=== PATIENT | male | born 1950 | race Caucasian/White ===

== ENCOUNTER 2017-05-19 09:52 | Day surgery (SDC) | payer MEDICARE ==
[2017-05-13 10:14] VITALS: BMI 31.6
--- NOTE | 2017-05-18 14:19 | HP ---
HISTORY AND PHYSICAL DATE OF SERVICE: 05/19/2017 Catracho Buchanan is a 66-year-old patient seen with progressive left knee pain. We discussed treatment options. He elected to proceed with arthroscopy. Consent was obtained. PAST MEDICAL HISTORY: Hypertension, hyperlipidemia, migraine headaches. PAST SURGICAL HISTORY: Foot surgery. DAILY MEDICATIONS: 1. Allopurinol. 2. Amlodipine. 3. Atorvastatin. 4. Furosemide. ALLERGIES: None reported. SOCIAL HISTORY: Patient denies current tobacco use. PHYSICAL EVALUATION OF THE LEFT KNEE: His range of motion 0 to 130 degrees. There is a mild effusion. Tenderness medial joint line, tenderness lateral joint line. Positive medial Joyce's. Positive lateral Joyce's. Ligaments are stable. Hip rotation without pain. Distal neurovascular exam is intact Left knee radiographs revealed mild medial, mild lateral and moderate patellofemoral compartment osteoarthritis of the left knee. MRI revealed medial meniscal tear. IMPRESSION: 1. Internal derangement, left knee with meniscal tear. 2. Left knee osteoarthritis. 3. Hypertension. 4. Hyperlipidemia. PLAN: Left knee arthroscopy with partial meniscectomy and debridement. MMODL / IJN: [id number] /
[~2017-05-19 09:52] MED LIST: DEXAMETHASONE SOD PHOSPHATE 10 MG/ML 1 ML VIAL IV ONE; LACTATED RINGERS 1,000 ML IV SCH; LIDOCAINE 1% 20 ML VIAL (10MG/ML) FOR IV START INTRADERMA PRN; MIDAZOLAM 2 MG/2 ML VIAL IV PRN; ONDANSETRON 4 MG/2 ML VIAL IVP ONE; SCOPOLAMINE 1.5MG/72HR PATCH TRANSDERM ONE; ceFAZolin IN SWFI 2 GM/20 ML SYRINGE IVP ONE
[2017-05-19] MEDS ORDERED: LIDOCAINE 1% 20 ML VIAL (10MG/ML) FOR IV START INTRADERMA ONE (10:28)
[2017-05-19] MEDS ORDERED: fentaNYL (PF) 50 MCG/ML 2 ML AMP ONE (12:24)
[2017-05-19] MEDS ORDERED: BUPIVACAINE (PF) 0.25% 30 ML VIAL INTRAARTIC ONE (12:24)
[2017-05-19] MEDS ORDERED: MIDAZOLAM 2 MG/2 ML VIAL ONE (12:24)
[2017-05-19] MEDS ORDERED: LIDOCAINE 1% INJ 10MG/ML (20 ML MDV) ONE (12:24)
[2017-05-19] MEDS ORDERED: PROPOFOL 10 MG/ML 20 ML VIAL IV ONE (12:24)
[2017-05-19] MEDS ORDERED: SUCCINYLCHOLINE CHLORIDE 100 MG/5 ML SYR IV ONE (12:24)
[2017-05-19] MEDS ORDERED: LACTATED RINGERS 1,000 ML IV ONE ×2 (13:14→17:00)
[2017-05-19 13:36] VITALS: TEMP 98
--- NOTE | 2017-05-19 13:46 | P.OP ---
Date of Procedure: 05/19/17 Preoperative Diagnosis: Internal derangement left knee Postoperative Diagnosis: 1. Tear medial and lateral meniscus left knee 2. Grade 3 chondromalacia medial femoral condyle 3. Grade 3 chondromalacia lateral tibial plateau left knee 4. Grade 2 chondromalacia patella left knee 5. Reactive synovitis medial and suprapatellar compartments left knee 6. Large osteophyte medial patella left knee Procedure(s) Performed: 1. Arthroscopic partial medial and lateral meniscectomy left knee 2. Arthroscopic chondroplasty medial femoral condyle left knee 3. Arthroscopic chondroplasty lateral tibial plateau left knee 4. Arthroscopic chondroplasty patella left knee 5. Arthroscopic partial synovectomy medial and suprapatellar compartments left knee 6. Arthroscopic excision osteophyte medial patella left knee Implants: None Anesthesia: TIARRA, local Surgeon: Lawrence Rahman Estimated Blood Loss (ml): 10 Pathology: none sent Condition: stable Disposition: PACU Indications for Procedure: 66-year-old patient seen with progressive left knee pain. After treatment options were discussed, he elected to proceed with arthroscopy. Operative Findings: see description of procedure Description of Procedure: Patient was taken to the operative suite. Patient underwent a general anesthetic by the department of anesthesia. Patient was given preoperative antibiotics. The left lower extremity was placed in a well-padded arthroscopic leg thakur. The left leg was prepped and draped in the normal sterile orthopedic fashion. A lateral parapatellar and suprapatellar incision was made. Trochars were inserted. Arthroscopy was initiated. Suprapatellar pouch revealed diffuse thick reactive synovitis. The patellofemoral joint appeared to articulate congruently. There was grade 2 chondromalacia of the patella with some osteochondral tears present. The scope was guided into the medial gutter. There was a large osteophyte emanating off the medial patella which articulated with the medialmost femoral condyle causing grade 4 chondromalacia in that area. With range of motion and it was contact between the osteophyte and that condyle. No loose bodies or plica were identified. The scope was then guided into the medial compartment. A medial parapatellar incision was made. Trocar inserted followed by probe. There was a complex tear posterior horn medial meniscus which extended into the midbody. There were grade 3 chondromalacia changes of the medial femoral condyle with some osteochondral tears present. There was reactive synovitis anteriorly. I performed a partial medial meniscectomy down to stable tissue. I performed a chondroplasty of the medial femoral condyle down to stable tissue and partial synovectomy. The residual meniscus was stable. The residual osteochondral surface of the medial femoral condyle was stable. There was good decompression of the reactive synovitis. Scope and probe were then guided into the intercondylar notch. Cruciates were identified, probed and found to be stable. The scope and probe were then guided into lateral compartment. There was radial tears mid body and posterior horn lateral meniscus. There were grade 3 chondromalacia changes lateral tibial plateau. Grade 1 chondromalacia changes of the lateral femoral condyle. No loose bodies or reactive synovitis. I performed a partial lateral meniscectomy down to stable tissue I performed a chondroplasty the tibial plateau down to stable tissue. The residual osteochondral surfaces were stable as was the residual meniscus. The scope was in guided back into the suprapatellar compartment. I introduced a motorized shaver into the super patellar compartment. I debrided some piecemeal fragments of meniscus I encountered. I performed a chondroplasty of the patella down to stable tissue. I performed a partial synovectomy. I now introduced a motorized bur into the super compartment and excise that medial osteophyte off the patella. The bur was removed. With range of motion there was no contact with that medialmost patella. I now took one more look on the entire knee, no residual debris. Instruments were now removed from the joint. The joint was infiltrated with .25 % Marcaine. Steri-Strips were applied to the portal sites. Sterile dressings were applied. The patient was placed into a FÁTIMA hose. No tourniquet was utilized. The patient was awakened, transferred to a bed and taken to recovery stable satisfactory condition.
[2017-05-19 14:02] VITALS: RESP 16
[2017-05-19] MEDS: HYDROmorphone 0.5 MG/0.5 ML SYRINGE IVP PRN ×2 (14:20→14:35)
[2017-05-19] MEDS ORDERED: ONDANSETRON 4 MG/2 ML VIAL IVP ONE (15:41)
[2017-05-19 18:08] VITALS: BP 153/90; PULSE 83
== END 2017-05-19 18:30 | disposition home or self-care (01) ==
LOC: OR 09:52
PROVIDERS: ATTEND Orthopaedic Surgery
DX: S83.242A Other tear of medial meniscus, current injury, left knee, initial encounter (principal); S83.282A Other tear of lateral meniscus, current injury, left knee, initial encounter; X58.XXXA Exposure to other specified factors, initial encounter; M22.42 Chondromalacia patellae, left knee; M65.862 Other synovitis and tenosynovitis, left lower leg; M25.762 Osteophyte, left knee; M10.9 Gout, unspecified; I10 Essential (primary) hypertension; Z87.891 Personal history of nicotine dependence; K21.9 Gastro-esophageal reflux disease without esophagitis; E78.5 Hyperlipidemia, unspecified; Z79.899 Other long term (current) drug therapy; Z79.82 Long term (current) use of aspirin
CPT/HCPCS: 29880; J2250; J1100; J2405; J1170; J0690

== ENCOUNTER → 2018-11-09 | Outpatient (CLI) | payer MEDICARE ==
--- NOTE | 2018-11-09 12:46 | US ---
EXAMINATION TYPE: US prostate transrectal DATE OF EXAM: 11/09/2018 COMPARISON: NONE CLINICAL HISTORY: R97.20 Elevated PSA level. Elevated PSA This examination was performed using the transrectal probe. EXAM MEASUREMENTS: Gland Size: 4.9 x 4.1 x 5.5 cm Volume: 58.1 Predicted PSA: 7.0 Actual PSA (if available):Pt states PSA last year was 2.5, recent blood work showed elevated at 6.5 Initial images show seminal vesicles appear within normal limits. There is heterogeneous and enlarged prostate gland with central calcifications but no suspicious hypoechoic nodules. IMPRESSION: Findings consistent with benign prostatic hypertrophy. Predicted PSA = volume x 0.12 ng/ml Calculated Volume = 0.5236 x L x W x H
== END | disposition home or self-care (01) ==
LOC: RADUSWWP 12:01
PROVIDERS: ATTEND Internal Medicine
DX: R97.20 Elevated prostate specific antigen [PSA] (principal)
CPT/HCPCS: 76872

== ENCOUNTER 2020-02-12 16:02 | Emergency (ER) | payer MEDICARE ==
--- NOTE | 2020-02-12 16:48 | ED ---
Skin/Abscess/FB HPI - General Chief complaint: Skin/Abscess/Foreign Body Stated complaint: sent for IV antibiotics Time Seen by Provider: 02/12/20 16:16 Source: patient Mode of arrival: ambulatory Limitations: no limitations - History of Present Illness Initial comments: Patient is 69-year-old male presenting to the emergency room with a chief complaint of needing IV antibiotics. Patient states he has developed an infection on his right foot and is currently being treated by a vice president of instruction from the [facility]. Patient states he had a bone biopsy performed about one week ago and was diagnosed with a "bone infection". He is not sure of the osteomyelitis. States that he is currently on doxycycline twice a day. He also reports there is a topical antibiotic on the infected wound. Patient reports several days ago he went to a wedding and drinks some alcohol. Patient reports the infection signs increased in severity. Patient reports increased erythema and swelling. States he contacted the vice president of instruction who advised him to come to the emergency department for evaluation and IV antibiotics. Patient reports history of multiple foot surgeries and previous ulcers in the same region where the current infection exists. He is not diabetic. He denies any night sweats or chills. - Related Data Home Medications Medication Instructions Recorded Confirmed Aspirin 81 mg PO DAILY 05/13/17 05/19/17 Atorvastatin [Lipitor] 20 mg PO DAILY 05/13/17 05/19/17 Furosemide [Lasix] 20 mg PO DAILY 05/13/17 05/19/17 Multivitamin [Men's Multi-Vitamin] 1 each PO DAILY 05/13/17 05/19/17 Omeprazole [PriLOSEC] 20 mg PO AC-BRKFST 05/13/17 05/19/17 allopurinoL [Zyloprim] 200 mg PO DAILY 05/13/17 05/19/17 amLODIPine [Norvasc] 5 mg PO DAILY 05/13/17 05/19/17 Previous Rx's Medication Instructions Recorded Hydrocodone/Acetaminophen [[place] 1 each PO Q6HR PRN #20 tab 05/19/17 5-325] Allergies Allergy/AdvReac Type Severity Reaction Status Date / Time No Known Allergies Allergy Verified 02/12/20 16:11 Review of Systems ROS Statement: Those systems with pertinent positive or pertinent negative responses have been documented in the HPI. ROS Other: All systems not noted in ROS Statement are negative. Past Medical History Past Medical History: GERD/Reflux, Hyperlipidemia, Hypertension, Osteoarthritis (OA) Additional Past Medical History / Comment(s): hx. gout History of Any Multi-Drug Resistant Organisms: None Reported Past Surgical History: Orthopedic Surgery Additional Past Surgical History / Comment(s): right shoulder surg., multiple sumanth. foot surg. Past Anesthesia/Blood Transfusion Reactions: Postoperative Nausea & Vomiting (PONV) Additional Past Anesthesia/Blood Transfusion Reaction / Comment(s): N/V once Past Psychological History: No Psychological Hx Reported Smoking Status: Never smoker Past Alcohol Use History: Occasional Past Drug Use History: Marijuana - Past Family History Father Family Medical History: Cancer Mother Sister(s) Family Medical History: Cancer General Exam Limitations: no limitations General appearance: alert, in no apparent distress Head exam: Present: atraumatic, normocephalic, normal inspection Eye exam: Present: normal appearance, PERRL, EOMI Pupils: Present: normal accommodation ENT exam: Present: normal exam, normal oropharynx, mucous membranes moist, TM's normal bilaterally, normal external ear exam Neck exam: Present: normal inspection, full ROM. Absent: tenderness Respiratory exam: Present: normal lung sounds bilaterally. Absent: respiratory distress, wheezes, rales Cardiovascular Exam: Present: regular rate, normal rhythm, normal heart sounds Extremities exam: Present: full ROM, tenderness (Mild Tenderness at the affected site.), normal capillary refill, other (+2 dorsalis pedis and posterior tibials bilaterally.). Absent: normal inspection (Overlying cellulitic skin changes along the distal aspect of the right foot but does not appear to be warmer than other nonaffected regions. There is mild to moderate swelling particularly near the second MTP joint. ), pedal edema, joint swelling, calf tenderness Back exam: Present: normal inspection, full ROM. Absent: tenderness, CVA tenderness (R), CVA tenderness (L) Neurological exam: Present: alert, oriented X3 Psychiatric exam: Present: normal affect, normal mood Skin exam: Present: warm, dry, intact, normal color Course Vital Signs 02/12/20 16:08 Temperature 98.3 F Pulse Rate 83 Respiratory 18 Rate Blood Pressure 154/90 O2 Sat by Pulse 98 Oximetry Medical Decision Making - Medical Decision Making Patient 69-year-old male presenting to the emergency department with a chief complaint of foot infection. On physical examination, patient does have some overlying solidity skin changes on the distal end of the right foot. Although, I do not see any active discharge at this time. He does have some tenderness although it appears to be only mild. He is otherwise neurovascularly intact. Patient is only requesting a single dose of IV antibiotics and would like to be discharged. He states that he will return if his symptoms worsen. X-ray reveals no signs of acute osteomyelitis. CBC reveals no leukocytosis. Lactic acid within normal limits. CRP is elevated at 85. His vitals are stable. Patient was given IV clindamycin . He was advised to continue taking his doxycycline. Strict return parameters were thoroughly discussed the patient was understanding and agreeable. Case discussed with physician. - Lab Data Result diagrams: 02/12/20 16:11 02/12/20 16:11 Lab Results 02/12/20 02/12/20 02/12/20 Range/Units 16:11 16:11 16:11 WBC 8.0 (3.8-10.6) k/uL RBC 4.46 (4.30-5.90) m/uL Hgb 14.0 (13.0-17.5) gm/dL Hct 43.2 (39.0-53.0) % MCV 96.8 (80.0-100.0) fL MCH 31.5 (25.0-35.0) pg MCHC 32.5 (31.0-37.0) g/dL RDW 13.5 (11.5-15.5) % Plt Count 388 (150-450) k/uL Neutrophils % 60 % Lymphocytes % 22 % Monocytes % 8 % Eosinophils % 7 % Basophils % 1 % Neutrophils # 4.8 (1.3-7.7) k/uL Lymphocytes # 1.8 (1.0-4.8) k/uL Monocytes # 0.6 (0-1.0) k/uL Eosinophils # 0.5 (0-0.7) k/uL Basophils # 0.0 (0-0.2) k/uL Sodium 140 (137-145) mmol/L Potassium 4.3 (3.5-5.1) mmol/L Chloride 109 H (98-107) mmol/L Carbon Dioxide 23 (22-30) mmol/L Anion Gap 8 mmol/L BUN 24 H (9-20) mg/dL Creatinine 0.93 (0.66-1.25) mg/dL Est GFR (CKD-EPI)AfAm >90 (>60 ml/min/1.73 sqM) Est GFR (CKD-EPI)NonAf 83 (>60 ml/min/1.73 sqM) Glucose 105 H (74-99) mg/dL Plasma Lactic Acid Arnold 0.8 (0.7-2.0) mmol/L Calcium 9.2 (8.4-10.2) mg/dL Total Bilirubin 0.3 (0.2-1.3) mg/dL AST 19 (17-59) U/L ALT 13 (4-49) U/L Alkaline Phosphatase 91 (38-126) U/L C-Reactive Protein 87.4 H (<10.0) mg/L Total Protein 6.8 (6.3-8.2) g/dL Albumin 3.7 (3.5-5.0) g/dL Disposition Clinical Impression: Right foot infection Disposition: HOME SELF-CARE Condition: Stable Instructions (If sedation given, give patient instructions): Foot Care for People with Diabetes (ED), Diabetic Foot Ulcers (ED) Additional Instructions: Continue taking your antibiotic. Follow-up with your vice president of instruction. Return to emergency department if symptoms worsen. Is patient prescribed a controlled substance at d/c from ED?: No Referrals: Claudia Ramon MD [Primary Care Provider] - 1-2 days Time of Disposition: 18:58
[2020-02-12 16:58] LABS: Basophils % (A) 1 %; Eosinophils # (A) 0.5 k/uL (0-0.7); Eosinophils % (A) 7 %; HCT 43.2 % (39.0-53.0); Lymphocytes # (A) 1.8 k/uL (1.0-4.8); Lymphocytes % (A) 22 %; MCH 31.5 pg (25.0-35.0); MCHC 32.5 g/dL (31.0-37.0); MCV 96.8 fL (80.0-100.0); Mean Platelet Volume 6.9; Monocytes # (A) 0.6 k/uL (0-1.0); Monocytes % (A) 8 %; Neutrophils # (A) 4.8 k/uL (1.3-7.7); Neutrophils % (A) 60 %; Platelet Count 388 k/uL (150-450); RBC 4.46 m/uL (4.30-5.90); RDW 13.5 % (11.5-15.5)
[2020-02-12 17:12] LABS: ALT 13 U/L (4-49); AST 19 U/L (17-59); African American GFR (CKD) >90 (>60 ml/min/1.73 sqM); Albumin 3.7 g/dL (3.5-5.0); Alkaline Phosphatase 91 U/L (38-126); Anion Gap 8 mmol/L; Blood Urea Nitrogen 24 mg/dL (9-20); C Reactive Protein 87.4 mg/L (<10.0); Calcium 9.2 mg/dL (8.4-10.2); Carbon Dioxide 23 mmol/L (22-30); Chloride 109 mmol/L (98-107); Glucose 105 mg/dL (74-99); Non-African American GFR(CKD) 83 (>60 ml/min/1.73 sqM); Potassium 4.3 mmol/L (3.5-5.1); Sodium 140 mmol/L (137-145); Total Bilirubin 0.3 mg/dL (0.2-1.3); Total Protein 6.8 g/dL (6.3-8.2)
--- NOTE | 2020-02-12 17:20 | XR ---
Result: Clinical History: Right foot pain and swelling/infection. Comparison: None available. Technique: 3 views of the right foot. Findings: There are severe degenerative changes and deformity of the first MTP joint with nonunion fracture of the first metatarsal neck seen. No definite bony destruction or osseous erosions are seen. Remote pos ttraumatic deformity of the fifth metatarsal neck is noted. There is ankylosis of the third second an d third interphalangeal joints. Otherwise no acute fracture or dislocation. No soft tissue gas is seen. 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 No radiographic evidence to suggest acute osteomyelitis. However chronic osteomyelitis cannot be excl uded. If there is continued clinical concern, recommend MRI for further evaluation/increased sensitiv ity.
[2020-02-12] MEDS ORDERED: CLINDAMYCIN 900 MG in DEXTROSE 5% IN WATER 50 ML IVPB STA ×2 (17:41)
[2020-02-12 19:11] VITALS: BP 114/89; PULSE 76; RESP 16; TEMP 98.1
== END 2020-02-12 19:15 | disposition home or self-care (01) ==
LOC: EC 16:02
DX: L08.9 Local infection of the skin and subcutaneous tissue, unspecified (principal); I10 Essential (primary) hypertension; E78.5 Hyperlipidemia, unspecified; K21.9 Gastro-esophageal reflux disease without esophagitis; Z79.82 Long term (current) use of aspirin; Z79.899 Other long term (current) drug therapy
CPT/HCPCS: 36415; 80053; 83605; 85025; 86140; 87040; 96374; 99283